=== PATIENT | female | born 1970 | race Caucasian/White ===

== ENCOUNTER → 2019-01-12 | Outpatient (CLI) | payer BC, OTHER ==
[~2019-01-12] MED LIST: BELPTAB PO; PROM25 PO; Zantac150 MG PO
[2019-01-12 08:39] LABS: BASOPHILS ABSOLUTE AUTO 0.06 K/mm3 (0.00-0.23); BASOPHILS PERCENT AUTO 1 % (0-2); EOSINOPHILS ABSOLUTE AUTO 0.13 K/mm3 (0.00-0.68); EOSINOPHILS PERCENT AUTO 2 % (0-6); Hematocrit 42.9 % (33.0-51.0); Hemoglobin 14.4 g/dL (11.5-16.0); IMMATURE GRAN ABSOLUTE AUTO 0.02 K/mm3 (0.00-0.10); IMMATURE GRAN PERCENT AUTO 0 % (0-1); LYMPHOCYTES ABSOLUTE AUTO 2.11 K/mm3 (0.84-5.20); LYMPHOCYTES PERCENT AUTO 24 % (21-46); MONOCYTES ABSOLUTE AUTO 0.59 K/mm3 (0.16-1.47); MONOCYTES PERCENT AUTO 7 % (4-13); Mean Corpuscular HGB 29.5 pg (26.0-34.0); Mean Corpuscular HGB Conc 33.6 g/dL (31.5-36.5); Mean Corpuscular Volume 88 fL (80-100); Mean Platelet Volume 9.4 fL (9.1-12.4); NEUTROPHILS PERCENT AUTO 67 % (41-73); Platelet Count 346 K/mm3 (150-400); RDW Coefficient Variation 13.1 % (11.7-14.2); RDW Standard Deviation 42.4 fL (35.1-46.3); Red Blood Cell Count 4.88 M/mm3 (3.80-5.20); White Blood Cell Count 8.81 K/mm3 (4.00-11.30)
[2019-01-12 10:46] LABS: Alanine Aminotransfer (ALT/SGP 28 U/L (12-78); Albumin, Blood 3.8 g/dL (3.4-5.0); Alk Phos 74 U/L (50-136); Anion Gap 7 mmol/L (6-16); Aspartate Aminotrans (AST/SGOT 15 U/L (12-37); Bilirubin, Total 0.4 mg/dL (0.1-1.0); Blood Urea Nitrogen 12 mg/dL (8-24); Bun/Creatinine Ratio 17.4 (12.0-20.0); CO2, Blood 26 mmol/L (21-32); Calcium, Blood 8.5 mg/dL (8.5-10.1); Chloride, Blood 107 mmol/L (98-108); Creatinine, Blood 0.69 mg/dL (0.40-1.00); Globulin, Blood 3.9 g/dL (2.2-4.0); Glomerular Filtration Rate >60 (60-); Glucose, Blood 85 mg/dL (70-99); Sodium, Blood 140 mmol/L (136-145); Total Protein, Blood 7.7 g/dL (6.4-8.2)
== END | disposition home or self-care (01) ==
LOC: LAB EV 08:35 → LAB SHORT 08:35
PROVIDERS: Physician Assistant
DX: R11.0 Nausea (principal)
CPT/HCPCS: 80053; 84443; 85025